=== PATIENT | male | born 1985 | race Hispanic/Latino ===

== ENCOUNTER 2022-08-16 07:47 | Emergency (ER) | payer SELFPAY ==
[~2022-08-16] VITALS: Ht 182.9 cm; Wt 85.0 kg
[2022-08-16] VITALS (7 sets, daily range): BP systolic 108–117; BP diastolic 62–74
[2022-08-16] MEDS ORDERED: AMOX/K CLAV875 M1 PO (09:00)
== END 2022-08-16 09:59 | disposition home or self-care (01) | DRG 153 ==
LOC: ED 07:47
DX: J02.9 Acute pharyngitis, unspecified (principal); Z20.822 Contact with and (suspected) exposure to COVID-19

== ENCOUNTER 2022-11-29 14:24 | Emergency (ER) | payer SELFPAY ==
[~2022-11-29] VITALS: Ht 182.9 cm; Wt 81.0 kg
[2022-11-29] VITALS (12 sets, daily range): BP systolic 106–121; BP diastolic 60–82
[~2022-11-29 14:24] MED LIST: AMOX/K CLAV875 M1 PO
[2022-11-29 15:38] LABS: URINE BILIRUBIN - DIPSTICK NEGATIVE (NEGATIVE); URINE BLOOD DIPSTICK TRACE-INTACT (NEGATIVE); URINE COLOR YELLOW; URINE GLUCOSE - DIPSTICK NEGATIVE (NEGATIVE); URINE KETONE NEGATIVE (NEGATIVE); URINE LEUK ESTERASE NEGATIVE (NEGATIVE); URINE PROTEIN - DIPSTICK NEGATIVE (NEG-TRACE); URINE UROBILINOGEN - DIPSTICK 0.2 E.U./dL (0.2)
[2022-11-29 15:40] LABS: URINE NITRITE - DIPSTICK POSITIVE (Negative)
[2022-11-29 15:41] LABS: BASO% 0.5 % (0-3); EOS% 1.1 % (0-8); HEMATOCRIT 45.8 % (39.0-50.0); IMMATURE GRANULOCYTES 0.2 % (0.0-5.0); LYMPH% 32.3 % (15-41); MEAN CELL VOLUME 95.4 fL CALC (80.0-100.0); MEAN CORPUSCULAR HGB 31.3 pG CALC (26.0-32.0); MEAN CORPUSCULAR HGB CONC 32.8 g/dL CAL (32.0-36.0); MONO% 8.5 % (2-13); NEUT# 3.74 thou/uL (1.82-7.42); NEUT% 57.4 % (42-76); RED BLOOD COUNT 4.8 mill/uL (4.70-6.10); RED CELL DISTRI WIDTH 12.4 % (11.5-15.5)
[2022-11-29 15:45] LABS: URINE WBC 0-2 WBC/hpf (0-5)
[2022-11-29 15:46] LABS: URINE MUCUS RARE hpf (NONE-FEW)
[2022-11-29 16:07] LABS: ALBUMIN 4.5 g/dL (3.2-5.0); ALKALINE PHOSPHATASE 68 u/l (38-126); AMYLASE 70 u/l (30-110); ANION GAP 14 (6-22 (CALC)); BILIRUBIN, TOTAL 0.5 mg/dL (0.2-1.3); BUN 11 mg/dL (9-20); BUN/CREATININE RATIO 14 (12-20 (CALC)); CARBON DIOXIDE 23 mmol/l (22-30); CHLORIDE 109 mmol/l (95-108); CREATININE 0.8 mg/dL (0.7-1.3); GFR FOR AFR.AMER. > 60 ML/MIN (>=60 (CALC)); GFR OTHER RACES > 60 ML/MIN (>=60 (CALC)); LIPASE 94 u/l (23-300); SGOT/AST 24 u/l (17-59); SODIUM 141 mmol/l (137-146); TOTAL PROTEIN 7.2 g/dL (6.3-8.2)
[2022-11-29] MEDS ORDERED: DICYCLOMINE10 MG PO (19:24)
[2022-11-29] MEDS ORDERED: PROTONIX40 M2 PO (19:24)
== END 2022-11-29 19:59 | disposition home or self-care (01) | DRG 392 ==
LOC: ED 14:24
PROVIDERS: Family Medicine
DX: K29.70 Gastritis, unspecified, without bleeding (principal)
CPT/HCPCS: Q9967; S0164